=== PATIENT | male | born 1985 | race Caucasian/White ===

== ENCOUNTER 2023-02-07 18:30 | Emergency (ER) | payer SELFPAY ==
[~2023-02-07] VITALS: Ht 175.2 cm; Wt 81.6 kg
[~2023-02-07 18:30] MED LIST: ANAPROX DS550 MG PO
[2023-02-07] MEDS ORDERED: SILVADENE20 GM T (18:48)
== END 2023-02-07 19:19 | disposition home or self-care (01) ==
LOC: ED 18:30
DX: L55.9 Sunburn, unspecified (principal)